=== PATIENT | male | born 1955 | race Caucasian/White ===

== ENCOUNTER 2021-01-26 17:58 | Emergency (ER) | payer MEDICARE, SELFPAY ==
[2021-01-26] VITALS (9 sets, daily range): BP systolic 140–200; BP diastolic 81–111; PULSE 84–106; RESP 18–22; TEMP 36.7–37.4; O2SAT 92–100; BMI 25.8
--- NOTE | ~2021-01-26 | CT_ITS ---
EXAMINATION: CT HEAD WITHOUT CONTRAST CLINICAL INFORMATION: Hypertensive. Question bleed or stroke. COMPARISON: None. TECHNIQUE: Contiguous axial imaging was performed from the skull base to vertex without intravenous contrast. This CT examination was performed using dose optimization techniques as appropriate, variously including the following: * Automated exposure control * Adjustment of mA and/or kV according to patient size (this includes techniques or standardized protocols for targeted exams where dose is matched to indication/reason for exam; i.e. extremities or head) Use of iterative reconstruction technique DLP: 1518 mGy-cm. FINDINGS: There is no evidence of acute intracranial hemorrhage or territorial infarction. No abnormal mass effect or midline shift is seen. Tran to white matter differentiation is well preserved. No extra-axial fluid collections are identified. No hydrocephalus. Proportional prominence of the ventricles and sulcal spaces is consistent with mild volume loss. Patchy periventricular and deep white matter hypoattenuation is consistent with mild small vessel ischemic changes. The osseous structures and soft tissues are normal. Moderate opacification of the left maxillary sinus. The left frontal sinus is completely opacified. The mastoid air cells and visualized portions of the paranasal sinuses are otherwise well aerated. CT/CT head/brain wo con IMPRESSION: No acute intracranial pathology. Paranasal sinus opacification as above.
--- NOTE | ~2021-01-26 | CT_ITS ---
EXAMINATION: CT ANGIOGRAM OF THE CHEST WITH AND WITHOUT CONTRAST (CT PULMONARY ANGIOGRAM FOR PE) CLINICAL INFORMATION: Reason for Exam PE? Pneumonia? COMPARISON: 07/29/2017 TECHNIQUE: Prior to contrast administration, noncontrast localization images were obtained. Subsequently, multidetector volumetric imaging was performed from the thoracic inlet to below the diaphragms following the administration of 65 mL Omnipaque 350 intravenous contrast. No contrast reaction reported Sagittal, coronal, and MIP oblique sagittal reformatted images were obtained on the CT workstation, uploaded to PACS, and reviewed. This CT examination was performed using dose optimization techniques as appropriate, variously including the following: *Automated exposure control *Adjustment of mA and/or kV according to patient size (this includes techniques or standardized protocols for targeted exams where dose is matched to indication/reason for exam; i.e. extremities or head) *Use of iterative reconstruction technique Total exam dose-length product 518 mGy-cm FINDINGS: QUALITY OF STUDY/CONTRAST BOLUS: Satisfactory. PULMONARY ARTERIES: No central or segmental pulmonary emboli. THORACIC AORTA: No aneurysm or dissection. Mild atherosclerotic disease. LUNG: The central airways are patent. Dependent opacity in the left lower lobe favors atelectasis. Mild bronchial wall thickening. No suspicious pulmonary nodules. Tiny right middle lobe nodule seen on the prior study is not currently visualized. PLEURA: No pleural effusion or pneumothorax. MEDIASTINUM: Normal heart size. Coronary artery calcification. No pericardial effusion. No hilar or mediastinal lymphadenopathy. There is a diverticulum extending off the distal right aspect of the esophagus. No evidence of septal bowing or right heart strain. CHEST WALL/AXILLA: No axillary or internal mammary lymphadenopathy. OSSEOUS STRUCTURES: No acute or suspicious osseous abnormality. Degenerative changes of the spine. UPPER ABDOMEN: Unremarkable. No reflux of contrast into the hepatic veins to suggest elevated right heart pressures. CT/CT angio chest PE protocol IMPRESSION: 1. No pulmonary embolism. 2. Bronchial wall thickening can be seen with a small airways process such as asthma or atypical/viral infection. No dense consolidation. 3. Distal esophageal diverticulum. VTE: negative
--- NOTE | ~2021-01-26 | XR_ITS ---
EXAMINATION: XR CHEST CLINICAL INFORMATION: Pneumonia COMPARISON: None TECHNIQUE: Frontal portable view of the chest was obtained. 2115 hours FINDINGS: Hazy opacity at the left lung base partially silhouetting the diaphragm consistent with consolidation and/or atelectasis and probable effusion. Right lung is normally aerated. No pulmonary vascular congestion. Cardiac and mediastinal contours are normal. XR/XR chest 1V IMPRESSION: Dense left lung base due to consolidation/atelectasis and probable effusion.
--- NOTE | 2021-01-26 19:18 | ECG_ITS ---
Test Reason : CHEST TIGHTNESS Blood Pressure : / mmHG Vent. Rate : 099 BPM Atrial Rate : 099 BPM P-R Int : 158 ms QRS Dur : 076 ms QT Int : 334 ms P-R-T Axes : 055 044 000 degrees QTc Int : 428 ms Normal sinus rhythm with sinus arrhythmia Nonspecific ST abnormality Abnormal ECG When compared with ECG of 29-JUL-2017 09:41, Vent. rate has increased BY 33 BPM Inverted T waves have replaced nonspecific T wave abnormality in Inferior leads T wave inversion no longer evident in Anterior leads Referred By: Paul Reardon Electronically Signed By:ISMAEL ZARATE MD
[2021-01-26 19:42] LABS: Basophils Percent Auto 0.3 % (0-2); MANUAL DIFF FLAG SCAN; Monocytes Absolute Auto 1.2 X10*3/uL (0.1-1.2); PLT CLUMP 1; Red Cell Distribution Width 12.8 % (11.0-16.0); SCAN SMEAR FLAG 1
[2021-01-26] MEDS: cloNIDine HCL 0.2 MG TABLET PO (19:42)
[2021-01-26] MEDS: ondansetron HCL 4 MG/2 ML VIAL IVPUSH ×2 (19:42→21:03)
[2021-01-26] MEDS: 0.9 % Sodium Chloride 1,000 ML 999 ML IV ×3 (19:42→22:58)
[2021-01-26 19:44] LABS: Eosinophils Absolute Auto 0.2 X10*3/uL (0.0-0.4); Eosinophils Percent Auto 1.2 % (0-4); Hematocrit 44.3 % (42-52); Hemoglobin 14.6 g/dl (14.0-18.0); Imm Gran Abs Auto 0.12 X10*3/uL (0.00-0.03); Imm Gran Pct Auto 0.8 % (0.0-0.4); Lymphocytes Absolute Auto 1.2 X10*3/uL (1.2-4.9); Mean Corpuscular Hemoglobin 31.5 pg (27.0-33.0); Mean Corpuscular Volume 95.5 fL (80-98); Monocytes Percent Auto 8.4 % (2-11); Neutrophils Absolute Auto 11.9 X10*3/uL (2.0-8.3); Neutrophils Percent Auto 81.3 % (45-73); Red Blood Count 4.64 X10*6/uL (4.60-5.80); White Blood Count 14.6 X10*3/uL (4.8-10.8)
--- NOTE | 2021-01-26 19:56 | MHC.RECOVSUP ---
? Reason for consult Support o Current location: ED9 o Identified substance use concern: Heroin / Suboxone - Withdrawal - Support ? Intervention o Community resources provided o Harm reduction discussion ? Plan: ? Additional information: Patient refused any services.. But was given Resources to follow up on..
[2021-01-26 20:06] LABS: Alanine Aminotransferase 18 U/L (0-40); Albumin Level 4.4 g/dL (3.5-5.0); Alkaline Phosphatase 52 U/L (39-117); Anion Gap 21 (12-20); Aspartate Amino Transferase 24 U/L (5-37); Bilirubin Total 0.7 mg/dL (0.0-1.0); Blood Urea Nitrogen 13 mg/dL (9-16); Calcium 9.6 mg/dL (8.4-10.2); Carbon Dioxide 19 mmol/L (22-29); Chloride 104 mmol/L (96-108); Creatinine Clr Calc Pharmacy 59.3; Estimated Glomerular Filt Rate > 60; Glucose Random 127 mg/dL (60-115); Potassium 3.6 mmol/L (3.3-5.1); Sodium 140 mmol/L (135-145); Total Protein 7.2 g/dL (6.5-8.0)
[2021-01-26 20:06] LABS: COVID-19 Test Negative (Negative); IDNOW Serial# 9DD0AD1C
[2021-01-26 20:20] LABS: Troponin-I High Sensitivity 11.8 ng/L (<3.5-35.0)
[2021-01-26 20:23] LABS: SLIDE REVIEW VERIFIED
[2021-01-26 20:35] LABS: INTERNATIONAL NORM RATIO 1.1 (0.9-1.1); Prothrombin Time 13.2 SEC (10.8-13.0)
[2021-01-26 20:38] LABS: Partial Thromboplastin Time 35.3 SEC (24.1-38.0)
--- NOTE | 2021-01-26 20:56 | PC.NURSE ---
Pharmacy contacted for captopril, eta 10-15 minutes.
[2021-01-26] MEDS: Loperamide HCl 2 MG CAPSULE PO (21:02)
[2021-01-26] MEDS: LORazepam 2 MG/ML VIAL IVPUSH (21:04)
--- NOTE | 2021-01-26 21:36 | PC.NURSE ---
MED CONTINUES TO BE DELAYED DUE TO PHARMACY. MLP AWARE.
[2021-01-26] MEDS: captopriL 25 MG TABLET PO (21:48)
--- NOTE | 2021-01-26 21:54 | PC.NURSE ---
PT BECAME DIFFICUT TO [facility] FOR BP MED ADMINSTRATION. MLP AWARE. PLAN TO DRAW ETOH, BLADDER SCAN AND STRIAGHT CATH FOR GARBER. PT STATED MAN WITH BLACK HAIR GAVE HIM MORE MEDS.
--- NOTE | 2021-01-26 22:16 | ED_ITS ---
HPI - General Adult General Chief complaint: ETOH/Substance Use Stated complaint: od high blood pressure Time Seen by Provider: 01/26/21 19:08 Source: patient Mode of arrival: ambulatory Limitations: no limitations History of Present Illness HPI narrative: Patient presents to the ED for diarrhea, abdominal cramping, chest tightness, sweating, and nausea after taking Suboxone after taking heroin. Patient lied to the [facility] and told them he did not take any heroin for the past 24 hours wehn in fact he took heroin that morning and then he took the strip of Suboxone and started having symptoms immediately. Patient also denies taking his blood pressure meds. Patient denies taking any other drug use. Related Data Previous Rx's Medication Instructions Recorded amoxicillin-pot clavulanate 1 tab PO Q12H 7 Days #14 tab 01/26/21 [Augmentin] doxycycline hyclate 100 mg PO BID 7 Days #14 cap 01/26/21 Allergies Allergy/AdvReac Type Severity Reaction Status Date / Time No Known Allergies Allergy Unverified 06/16/20 14:36 [No Known Allergies*] Review of Systems Review of Systems: Yes all other systems are reviewed and are negative Constitutional: Constitutional: Reports as per HPI and Reports no additional constitutional complaints Comments: Sweating Eyes: Eyes: Reports as per HPI and Reports no additional eye complaints ENT: Reports system reviewed and no additional complaints, except as documented and Reports as per HPI Cardiovascular: Cardiovascular: Reports as per HPI, Reports no additional cardiovascular complaints and Denies dyspnea Comments: Chest tightness Respiratory: Respiratory: Reports as per HPI, Reports no additional respiratory complaints and Denies dyspnea Gastrointestinal: Gastrointestinal: Reports as per HPI, Reports no additional gastrointestinal complaints, Reports GI cramping, Reports diarrhea and Reports nausea Genitourinary: Genitourinary: Reports no additional male genitourinary complaints and Reports as per HPI Musculoskeletal: Musculoskeletal: Reports no additional musculoskeletal complaints and Reports as per HPI Neurologic: Reports system reviewed and no additional complaints, except as documented and Reports as per HPI Psychiatric: Psychiatric: Reports no additional psychiatric complaints and Reports as per HPI [facility] Past Medical History Medical History (Updated 01/26/21 @ 22:35 by HILARY Weiss) High cholesterol HTN (hypertension) Social History Social History Alcohol intake: current Alcohol intake frequency: 0-2 drinks per day Smoking Status: Current every day smoker Smoked in Last 30 Days: Yes Use of substances other than those prescribed or required for medical reasons: Yes Substance Use Type: Heroin and Opiates Substance Use Frequency: Chronic Longstanding Last Used Substance: Just Prior to Admission Advance Directives: No Advance Directives Information Provided: Yes Physical Exam Vital Signs: Vital Signs: Last Vital Signs Temp 98.0 F 01/26/21 20:00 Pulse 84 01/26/21 22:00 Resp 18 01/26/21 22:00 BP 170/89 H 01/26/21 22:00 Pulse Ox 100 01/26/21 21:00 Body Mass Index 25.8 Const: General: cooperative, healthy appearing, comfortable, no acute distress, well developed, alert, awake and Physically active; No lethargic Orientation/consciousness: No lethargic HENMT: Head: Yes normal to inspection, Yes No palpable skull fracture present, Yes normocephalic, No atraumatic and No abrasion Eyes: General: appearance normal, both eyes and all related structures Neck: Neck: Yes normal visual inspection, Yes full ROM, Yes no lymphadenopathy, Yes no meningeal signs, Yes trachea midline, Yes supple and No tender Chest: Chest palpation & inspection: normal inspection of the chest and normal palpation of entire chest wall Resp: Effort & Inspection: normal respiratory effort and able to speak in complete sentences Auscultation: clear to auscultation bilaterally Cardio: Jugular venous distension: no JVD Heart sounds: S1 normal heart sound present and S2 normal heart sound present GI: Inspection: Yes normal to inspection and No abdominal wall ecchymosis Palpation (GI): Soft to palpation, not firm, nontender, no guarding and not rigid : General: No CVA tenderness and Yes no CVA tenderness Back/Spine/Pelvis: Back: no CVA tenderness, No CVA tenderness and No back tenderness Skin: General skin exam: no rashes or lesions noted and elasticity normal Neuro: General: patient oriented x3, no meningeal signs and CN's II-XI intact bilaterally Cranial nerves: Yes CN's II-XII intact bilaterally Extrem: General: Yes normal to inspection and Yes full ROM Psych: Appearance: grossly normal, well kempt and not disheveled Course Course Course Narrative: History and physical exam indicate opiate withdrawal due to patient taking Suboxone right after using 1 bag of heroin instead of waiting over 24 hours as per protocol. Patient age who also will do a cardiac evaluation. Will give medication to his clonidine which will help her blood pressure in opiate withdrawal. No improvement will give Ativan. Patient given fluids. Reevaluation(s) Reevaluation #1: EKG negative for STEMI. First troponin came back negative. COVID swab came back negative. Chest x-ray shows possible pneumonia. Due to elevated blood pressure patient was sent for head CT scan mentioned is no bleeding or stroke. Currently no neuro deficit. Give captopril to blood pressure still slightly elevated and give Ativan. Patient is not febrile Reevaluation #2: Awaiting head CT results. Symptoms most likely due to opiate withdrawal. will prepared discharged with p.o. antibiotics for probable chest x- ray pneumonia although patient denies any coughing. Patient IV drug user ( risk for aspiration pneumonia). Blood pressure improved. We will give IV antibiot ics due to patient being IV drug use. Will do lactic and blood culture. Discharge papers prepared and can be canceled if admission required. Presently no indication for admission. Positive symptoms are from opiate withdrawal due to patient taking Suboxone soon after taking heroin. Case signed out to Dr. Newby. Blood pressure on monitor presently is 146/85 Medical Decision Making MDM Narrative Medical decision making narrative: Opiate withdrawal. Pneumonia Lab Data Result diagrams: 01/26/21 19:33 01/26/21 19:33 Labs: Lab Results 01/26/21 01/26/21 01/26/21 Range/Units 19:33 19:33 19:33 WBC 14.6 H (4.8-10.8) X10*3/uL RBC 4.64 (4.60-5.80) X10*6/uL Hgb 14.6 (14.0-18.0) g/dl Hct 44.3 (42-52) % MCV 95.5 (80-98) fL MCH 31.5 (27.0-33.0) pg MCHC 33.0 (31.0-36.0) g/dl RDW 12.8 (11.0-16.0) % Plt Count TNP MPV Not Reportable Immature Gran % (Auto) 0.8 H (0.0-0.4) % Neut % (Auto) 81.3 H (45-73) % Lymph % (Auto) 8.0 L (20-40) % Davison % (Auto) 8.4 (2-11) % Eos % (Auto) 1.2 (0-4) % Baso % (Auto) 0.3 (0-2) % Lymph # (Auto) 1.2 (1.2-4.9) X10*3/uL Davison # (Auto) 1.2 (0.1-1.2) X10*3/uL Eos # (Auto) 0.2 (0.0-0.4) X10*3/uL Baso # (Auto) 0.0 (0.0-0.2) X10*3/uL Abs Immat Gran (auto) 0.12 H (0.00-0.03) X10*3/uL Absolute Neuts (auto) 11.9 H (2.0-8.3) X10*3/uL Absolute Nucleated RBC 0.000 (0.0-0.012) X10*3/uL Nucleated RBC % (auto) 0.0 (0.0-0.2) /100WBC Smear Tech's Comments VERIFIED PT (10.8-13.0) SEC INR (0.9-1.1) APTT (24.1-38.0) SEC Sodium 140 (135-145) mmol/L Potassium 3.6 (3.3-5.1) mmol/L Chloride 104 (96-108) mmol/L Carbon Dioxide 19 L (22-29) mmol/L Anion Gap 21 H (12-20) BUN 13 (9-16) mg/dL Creatinine 1.13 (0.5-1.4) mg/dL Estim Creat Clear Calc 59.3 Estimated GFR > 60 Random Glucose 127 H (60-115) mg/dL Calcium 9.6 (8.4-10.2) mg/dL Total Bilirubin 0.7 (0.0-1.0) mg/dL AST 24 (5-37) U/L ALT 18 (0-40) U/L Alkaline Phosphatase 52 (39-117) U/L Ammonia (13-55) umol/L Troponin I High Sens 11.8 (<3.5-35.0) ng/L Total Protein 7.2 (6.5-8.0) g/dL Albumin 4.4 (3.5-5.0) g/dL Urine Color Urine Appearance Urine pH (5.0-8.0) Ur Specific [place] (1.005-1.025) Urine Protein (NEG-TRACE) MG/DL Urine Glucose (UA) (NEG) MG/DL Urine Ketones (NEG) MG/DL Urine Blood (NEG) Urine Nitrite (NEG) Ur Leukocyte Esterase (NEG) Urine RBC (0) /HPF Urine WBC (0-4) /HPF Ur Squamous Epith Cells /LPF Urine Bacteria /LPF Urine Mucus /LPF Ethyl Alcohol mg/dL COVID-19 ([facility]) (Negative) COVID-19 Clin Com 01/26/21 01/26/21 01/26/21 Range/Units 19:45 20:24 22:18 WBC (4.8-10.8) X10*3/uL RBC (4.60-5.80) X10*6/uL Hgb (14.0-18.0) g/dl Hct (42-52) % MCV (80-98) fL MCH (27.0-33.0) pg MCHC (31.0-36.0) g/dl RDW (11.0-16.0) % Plt Count MPV Immature Gran % (Auto) (0.0-0.4) % Neut % (Auto) (45-73) % Lymph % (Auto) (20-40) % Davison % (Auto) (2-11) % Eos % (Auto) (0-4) % Baso % (Auto) (0-2) % Lymph # (Auto) (1.2-4.9) X10*3/uL Davison # (Auto) (0.1-1.2) X10*3/uL Eos # (Auto) (0.0-0.4) X10*3/uL Baso # (Auto) (0.0-0.2) X10*3/uL Abs Immat Gran (auto) (0.00-0.03) X10*3/uL Absolute Neuts (auto) (2.0-8.3) X10*3/uL Absolute Nucleated RBC (0.0-0.012) X10*3/uL Nucleated RBC % (auto) (0.0-0.2) /100WBC Smear Tech's Comments PT 13.2 H (10.8-13.0) SEC INR 1.1 (0.9-1.1) APTT 35.3 (24.1-38.0) SEC Sodium (135-145) mmol/L Potassium (3.3-5.1) mmol/L Chloride (96-108) mmol/L Carbon Dioxide (22-29) mmol/L Anion Gap (12-20) BUN (9-16) mg/dL Creatinine (0.5-1.4) mg/dL Estim Creat Clear Calc Estimated GFR Random Glucose (60-115) mg/dL Calcium (8.4-10.2) mg/dL Total Bilirubin (0.0-1.0) mg/dL AST (5-37) U/L ALT (0-40) U/L Alkaline Phosphatase (39-117) U/L Ammonia (13-55) umol/L Troponin I High Sens (<3.5-35.0) ng/L Total Protein (6.5-8.0) g/dL Albumin (3.5-5.0) g/dL Urine Color Urine Appearance Urine pH (5.0-8.0) Ur Specific [place] (1.005-1.025) Urine Protein (NEG-TRACE) MG/DL Urine Glucose (UA) (NEG) MG/DL Urine Ketones (NEG) MG/DL Urine Blood (NEG) Urine Nitrite (NEG) Ur Leukocyte Esterase (NEG) Urine RBC (0) /HPF Urine WBC (0-4) /HPF Ur Squamous Epith Cells /LPF Urine Bacteria /LPF Urine Mucus /LPF Ethyl Alcohol < 10 mg/dL COVID-19 ([place]) Negative (Negative) COVID-19 Clin Com See Note 01/26/21 01/26/21 Range/Units 22:18 22:18 WBC (4.8-10.8) X10*3/uL RBC (4.60-5.80) X10*6/uL Hgb (14.0-18.0) g/dl Hct (42-52) % MCV (80-98) fL MCH (27.0-33.0) pg MCHC (31.0-36.0) g/dl RDW (11.0-16.0) % Plt Count MPV Immature Gran % (Auto) (0.0-0.4) % Neut % (Auto) (45-73) % Lymph % (Auto) (20-40) % Davison % (Auto) (2-11) % Eos % (Auto) (0-4) % Baso % (Auto) (0-2) % Lymph # (Auto) (1.2-4.9) X10*3/uL Davison # (Auto) (0.1-1.2) X10*3/uL Eos # (Auto) (0.0-0.4) X10*3/uL Baso # (Auto) (0.0-0.2) X10*3/uL Abs Immat Gran (auto) (0.00-0.03) X10*3/uL Absolute Neuts (auto) (2.0-8.3) X10*3/uL Absolute Nucleated RBC (0.0-0.012) X10*3/uL Nucleated RBC % (auto) (0.0-0.2) /100WBC Smear Tech's Comments PT (10.8-13.0) SEC INR (0.9-1.1) APTT (24.1-38.0) SEC Sodium (135-145) mmol/L Potassium (3.3-5.1) mmol/L Chloride (96-108) mmol/L Carbon Dioxide (22-29) mmol/L Anion Gap (12-20) BUN (9-16) mg/dL Creatinine (0.5-1.4) mg/dL Estim Creat Clear Calc Estimated GFR Random Glucose (60-115) mg/dL Calcium (8.4-10.2) mg/dL Total Bilirubin (0.0-1.0) mg/dL AST (5-37) U/L ALT (0-40) U/L Alkaline Phosphatase (39-117) U/L Ammonia 45 (13-55) umol/L Troponin I High Sens (<3.5-35.0) ng/L Total Protein (6.5-8.0) g/dL Albumin (3.5-5.0) g/dL Urine Color DARK YELLOW Urine Appearance CLEAR Urine pH 8.5 H (5.0-8.0) Ur Specific [place] 1.020 (1.005-1.025) Urine Protein NEG (NEG-TRACE) MG/DL Urine Glucose (UA) NEG (NEG) MG/DL Urine Ketones 15 (NEG) MG/DL Urine Blood TRACE (NEG) Urine Nitrite NEG (NEG) Ur Leukocyte Esterase NEG (NEG) Urine RBC 5-9 H (0) /HPF Urine WBC 0-2 (0-4) /HPF Ur Squamous Epith Cells TRACE /LPF Urine Bacteria TRACE /LPF Urine Mucus TRACE /LPF Ethyl Alcohol mg/dL COVID-19 ([facility]) (Negative) COVID-19 Clin Com ECG Data Interpretation: Normal sinus rhythm. Ventricular rate 99. Pr interval 158. qTC 450. Discharge Plan Discharge Clinical Impression: Acute opioid withdrawal, Pneumonia Patient Disposition: Home, Self-Care Instructions: Bacterial Pneumonia (ED), Opioid Withdrawal (ED) Additional Instructions: Return to ED for any suicidal/homicidal ideation, headache, chest pain, shortness of breath, dizziness, fever, chills, severe abdominal pain, or any other concerning symptoms. Please follow-up with PCP Prescriptions: New amoxicillin-pot clavulanate [Augmentin] 875-125 mg tablet 1 tab PO Q12H 7 Days Qty: 14 RF: 0 doxycycline hyclate 100 mg capsule 100 mg PO BID 7 Days Qty: 14 RF: 0 Print Language: Turkmen
--- NOTE | 2021-01-26 22:22 | PC.NURSE ---
SECURITY TO SEARCH BELONGINGS. NOTHING FOUND. PT PROVIDES CONFUSED CONVERSATION. MLP TO BEDSIDE TO EVALUATE. PLAN TO STRAIGHT CATH. TOLERATED WELL.
[2021-01-26 22:27] LABS: Glucose Urine UA NEG (NEG); Leukocyte Esterase Urine NEG (NEG); Nitrite Urine NEG (NEG); PH 8.5 (5.0-8.0); Urine Blood TRACE (NEG); Urine Ketones 15 MG/DL (NEG); Urine Protein NEG (NEG-TRACE)
[2021-01-26 22:33] LABS: Appearance Urine CLEAR; Color Urine DARK YELLOW
[2021-01-26 22:40] LABS: Ammonia 45 umol/L (13-55)
[2021-01-26 22:41] LABS: Bacteria Urine TRACE /LPF; Mucus Urine TRACE /LPF; Squamous Epithelial Cell Urine TRACE /LPF; WBC Urine 0-2 /HPF (0-4)
[2021-01-26 22:45] LABS: Ethanol < 10 mg/dL
[2021-01-26 22:56] LABS: Amphetamine Screen Urine Not Detected (Not Detect); Barbiturates, Urine Not Detected (Not Detect); Benzodiazepines Screen Urine Not Detected (Not Detect); Cannabinoid Screen Urine POSITIVE (Not Detect); Cocaine Screen Urine Not Detected (Not Detect); Opiate Screen Urine POSITIVE (Not Detect); Phencyclidine Screen Urine Not Detected (Not Detect)
[2021-01-26] MEDS: cefTRIAXone sodium 1 GM in 0.9 % Sodium Chloride 50 ML IV (22:58)
[2021-01-26 23:03] LABS: Lactic Acid 1.2 mmol/L (0.5-2.0)
--- NOTE | 2021-01-26 23:08 | PC.NURSE ---
pt has intermittent periods of orientated conversation. need frequent reprompting to participate in care.
[2021-01-26 23:15] LABS: Troponin-I High Sensitivity 41.3 ng/L (<3.5-35.0)
[2021-01-26] MEDS: iohexoL 350 MG/ML 100 ML INFUS..BTL 65 ML IV (23:51)
[2021-01-27] MEDS: iohexoL 350 MG/ML 100 ML INFUS..BTL IV (00:05)
--- NOTE | 2021-01-27 00:11 | PC.NURSE ---
at bedside attempting to climb into bed with the patient. redirected that she must remain in chair at bedside or go to the waiting room. at this time is in agreement to remain in chair at bedside.
--- NOTE | 2021-01-27 00:30 | PC.NURSE ---
PER MD ESTRELLITA PINEDA TO D/C AT THIS TIME.
--- NOTE | 2021-01-28 07:22 | ECG_ITS ---
Test Reason : NSTEMI Blood Pressure : / mmHG Vent. Rate : 094 BPM Atrial Rate : 094 BPM P-R Int : 158 ms QRS Dur : 072 ms QT Int : 370 ms P-R-T Axes : 090 052 -04 degrees QTc Int : 462 ms Normal sinus rhythm ST & T wave abnormality, consider inferior ischemia Abnormal ECG When compared with ECG of 26-JAN-2021 19:54, ST now depressed in Lateral leads T wave inversion now evident in Anterior leads Referred By: Greg Newby Electronically Signed By:ISMAEL ZARATE MD
== END 2021-01-27 00:50 | disposition home or self-care (01) ==
PROVIDERS: Physician Assistant; Emergency Provider Internal Medicine; PCP Hospitalist
DX: J18.9 Pneumonia, unspecified organism (principal); F11.23 Opioid dependence with withdrawal; F17.200 Nicotine dependence, unspecified, uncomplicated; R30.0 Dysuria; Z20.822 Contact with and (suspected) exposure to COVID-19; Z71.6 Tobacco abuse counseling; Z79.899 Other long term (current) drug therapy
CPT/HCPCS: 36415; 51702; 70450; 71045; 71275; 80053; 80307; 80320; 81001; 81003; 82140; 83605; 84484; 85025; 85610; 85730; 87040; 87635; 93005; 96361; 96365; 96375; 99285; J0696; J2060; J2405; Q9967

== ENCOUNTER 2022-03-16 16:05 | Emergency (ER) | payer MEDICARE, SELFPAY ==
--- NOTE | 2022-03-16 16:13 | ED.OVERDOSE ---
HPI - Overdose General Chief Complaint: Overdose Stated Complaint: OD,NARCAN GIVEN W/GOOD RESULT Time Seen by Provider: 03/16/22 16:07 Source: patient and EMS Mode of arrival: EMS Limitations: no limitations History of Present Illness HPI Narrative: Pt comes to the ED c/o an overdose. EMS reports that bystanders saw the pt unconscious in his car at the [employer] parking lot. The store's janitorial manager called 911 . Bradley HYATT broke the pt's car window and pulled him out, intranasal narcan was given to him by PD. By the time that EMS arrived, pt was awake. Pt initally denied using drugs, but then admitted that this was an accident. Per [facility]adley [facility] fire, pt is known to frequently OD. Pt's approximately 3 month ago from an OD. Pt denies any CP, SOB Related Data Home Medications Medication Instructions Recorded Confirmed ezetimibe 10 mg tablet 1 tab PO DAILY 01/26/21 01/26/21 fenofibrate 160 mg tablet 1 tab PO DAILY 01/26/21 01/26/21 terazosin 5 mg capsule 1 cap PO BEDTIME 01/26/21 01/26/21 Previous Rx's Medication Instructions Recorded azithromycin 500 mg tablet 500 mg PO DAILY 3 days #3 tabs 01/27/21 (Zithromax) Allergies Allergy/AdvReac Type Severity Reaction Status Date / Time No Known Allergies Allergy Unverified 06/16/20 14:36 [No Known Allergies*] Review of Systems Review of Systems: Constitutional : No Weight loss, No Fever, No Chills, No Night Sweats, No Fatigue, No Malaise ENT/Mouth : No Hearing loss, No Ear Pain, No Nasal Congestion, No Sinus Pain, No Hoarseness, No sore throat, No Rhinorrhea, No Swallowing Difficulty Eyes: No Eye Pain, No Swelling, No Redness, No Foreign Body, No Discharge, No Vision Changes Cardiovascular : No Chest Pain, No SOB, No Dyspnea on Exertion, No Orthopnea, No Edema, No Palpitations Respiratory : No Cough, No Sputum, No Wheezing, No Smoke Exposure, No Dyspnea Gastrointestinal : No Nausea, No Vomiting, No Diarrhea, No Constipation, No abdominal Pain, No Hematochezia, No Melena Genitourinary : no irregular bleeding, No Dysuria, No Urinary Frequency, No Hematuria, No Urinary Incontinence, No Urgency, No Flank Pain, No Urinary Flow Changes, No Hesitancy Musculoskeletal : No joint pain, No Myalgias, No Joint Swelling Skin : No Skin Lesions, No rash Neuro : No Weakness, No Numbness, No Paresthesias, No Loss of Consciousness, No Dizziness, No Headache Psych : No Anxiety/Panic, No Depression, No SI/HI/AH/VH, No Social Issues, Heme/Lymph: No Bruising, No Bleeding,No Lymphadenopathy Endocrine : No Polyuria, No Polydipsia, No Temperature Intolerance [facility] Past Medical History Medical History (Updated 03/16/22 @ 17:38 by Cora Soler MD) High cholesterol HTN (hypertension) Overdose Substance abuse Social History Social History Alcohol intake: current Alcohol intake frequency: 0-2 drinks per day Substance Use Type: Heroin and Opiates Advance Directives: No Advance Directives Information Provided: No Physical Exam Vital Signs: Vital Signs: Last Vital Signs Temp 98.0 F 03/16/22 16:15 Pulse 84 03/16/22 17:24 Resp 18 03/16/22 16:15 BP 142/78 H 03/16/22 16:15 Pulse Ox 95 03/16/22 17:24 O2 Del Method 03/16/22 16:15 BMI result Body Mass Index 25.8 Const: Other: Appearance: Alert. Oriented X3. No acute distress. Eyes: Pupils equal, round and reactive to light. ENT: Pharynx normal. Neck: Normal inspection. Neck supple. No lymph nodes noted. No crepitus CVS: Normal heart rate and rhythm. Pulses normal. Normal S1 and S2 Respiratory: No respiratory distress. Breath sounds normal. No Wheezing. No rales , saturating 95% on room air Abdomen: Soft and nontender. No rigidity. No distention. Skin: Skin warm and dry. Normal skin color. Normal skin turgor. Extremities: No lower extremity edema. No Lacerations. No Rash Neuro: Oriented X 3. No motor deficit. No sensory deficit. Moving all extremities. No slurred speech. CN 2 through 12 grossly intact Psych: calm, cooperative, normal affect Course Course Course Narrative: At this time, patient remains awake, alert, calm and cooperative. Patient was given 2 mg of Narcan prior to arrival. SUDE consult pending. Physician observation started at 16:25 17:35, patient was seen by the care team/SUDE , patient is in denial that he used any narcotics, refused any help. Patient Was given home Narcan Discharge Plan Discharge Clinical Impression: Drug overdose Patient Disposition: Home, Self-Care Instructions: Adult Overdose (ED) Additional Instructions: Please follow-up with your primary care physician tomorrow. If you have any worsening or new symptoms, please return to the emergency room or call 911 Prescriptions: No Action terazosin 5 mg capsule 1 cap PO BEDTIME ezetimibe 10 mg tablet 1 tab PO DAILY fenofibrate 160 mg tablet 1 tab PO DAILY azithromycin [Zithromax] 500 mg tablet 500 mg PO DAILY 3 Days Qty: 3 0RF
[2022-03-16 16:15] VITALS: BP 142/78; PULSE 126; RESP 18; TEMP 36.7; O2SAT 96; BMI 25.8
--- NOTE | 2022-03-16 16:38 | HO.SUDE ---
SUDE Patient is a 66 year old Sudanese speaking male who presented to [facility] via EMS after an accidental overdose. This personal lines underwriter met with patient to offer SUDE assessment. Patient declines assessment, stating that he does not use heroin. Patient reports he used heroin years ago however continues to decline recent use. Patient reports he does not take any pills either. Patient reports he has never overdosed before. Explained to patient that we are not trying to get him in trouble or sap portal architect him and that our goal is to connect him with resources and supports. Patient continues to report no use. Encouraged patient to reach out to staff if he changes his mind and would like to talk. Recovery Support Team available as needed.
[2022-03-16 17:24] VITALS: PULSE 84; O2SAT 95
[2022-03-16] MEDS: Naloxone HCl Nasal TAKE HOME 4 MG SPRAY NOSTRILALT (17:32)
--- NOTE | 2022-03-16 17:35 | PC.NURSE ---
pt offered recovery coaches multiple times. offered detox list - refused. eating and drinking with no issue.
--- NOTE | 2022-03-16 17:38 | ECG_ITS ---
Test Reason : OVERDOSE Blood Pressure : / mmHG Vent. Rate : 082 BPM Atrial Rate : 082 BPM P-R Int : 166 ms QRS Dur : 086 ms QT Int : 342 ms P-R-T Axes : 092 027 -02 degrees QTc Int : 399 ms Normal sinus rhythm Nonspecific ST and T wave abnormality Abnormal ECG When compared with ECG of 26-JAN-2021 23:20, ST no longer depressed in Lateral leads QT has shortened Referred By: Cora Soler Electronically Signed By:Mario Bagley
== END 2022-03-16 17:55 | disposition home or self-care (01) ==
PROVIDERS: Emergency Provider Emergency Medicine
DX: T50.901A Poisoning by unspecified drugs, medicaments and biological substances, accidental (unintentional), initial encounter (principal); Y92.481 Parking lot as the place of occurrence of the external cause; I10 Essential (primary) hypertension
CPT/HCPCS: 93005; 99284

== ENCOUNTER 2023-09-22 13:28 | Emergency (ER) | payer MEDICARE, SELFPAY ==
[2023-09-22 13:32] VITALS: BP 198/105; PULSE 95; RESP 22; TEMP 36.5; O2SAT 95; BMI 29.7
--- NOTE | 2023-09-22 14:12 | ED_ITS ---
HPI - Overdose General Chief Complaint: Overdose Stated Complaint: quest od Time Seen by Provider: 09/22/23 13:59 Source: patient Mode of arrival: ambulatory Limitations: no limitations History of Present Illness HPI Narrative: 68 yo male with history of HTN presents to the ER after sniffing one bag of dope that was given to him by a friend. His friend gave narcan CLIENT CUSTOMER MANAGER and then dropped patient off here. He received 4mg IN in triage. Patient states I did something stupid that I havent done in years. Patient denies additional substance use. No SI/HI. No physical complaints. Related Data Home Medications Medication Instructions Recorded Confirmed ezetimibe 10 mg tablet 1 tab PO DAILY 01/26/21 01/26/21 fenofibrate 160 mg tablet 1 tab PO DAILY 01/26/21 01/26/21 terazosin 5 mg capsule 1 cap PO BEDTIME 01/26/21 01/26/21 Previous Rx's Medication Instructions Recorded azithromycin 500 mg tablet 500 mg PO DAILY 3 days #3 tabs 01/27/21 (Zithromax) Allergies Allergy/AdvReac Type Severity Reaction Status Date / Time No Known Allergies Allergy Unverified 06/16/20 14:36 [No Known Allergies*] [facility] Past Medical History Medical History (Updated 09/22/23 @ 14:12 by Stefany Estes NP) Overdose Substance abuse HTN (hypertension) High cholesterol Social History Social History Alcohol intake: current Alcohol intake frequency: 0-2 drinks per day Substance Use Type: Heroin and Opiates Advance Directives: No Advance Directives Information Provided: No Physical Exam Vital Signs: Vital Signs: Last Vital Signs Temp 97.7 F 09/22/23 13:32 Pulse 72 09/22/23 14:33 Resp 15 09/22/23 14:33 BP 139/81 09/22/23 14:33 Pulse Ox 98 09/22/23 14:33 O2 Del Method Room Air 09/22/23 14:33 BMI result Body Mass Index 29.7 Course Course Course Narrative: Patient monitored in the ER for greater than 1 hour with no additional need for Narcan. Patient drinking brittani edwardo up and ambulating with a steady gait. Plan for discharge home. Medical Decision Making Medical Decision Making MDM Narrative: 68 yo male with history of HTN presents to the ER after sniffing one bag of dope that was given to him by a friend. His friend gave narcan CLIENT CUSTOMER MANAGER and then dropped patient off here. He received 4mg IN in triage.? Patient states I did something stupid that I havent done in years. Patient denies additional substance use. No SI/HI. No physical complaints.? Awake, alert and oriented. VSS Not interested in detox resources, no SI/HI. will monitor for brief time before dispo Differential Diagnosis Differential Diagnoses: The differential diagnosis associated with the presentation includes polysubstance Admission/Observation Consideration of admission/observation: Escalation of care including admission/observation considered Improved with narcan, no need for repeat doses and or admission for obs Consult Healthcare Provider Management of the patient was discussed with: Solar Lab Technician Patient met with high school coach. No additional needs. Plan for discharge Discharge Plan Discharge Clinical Impression: Drug overdose Patient Disposition: Home, Self-Care Instructions: Adult Overdose (ED) Additional Instructions: dont do drugs Prescriptions: No Action terazosin 5 mg capsule 1 cap PO BEDTIME ezetimibe 10 mg tablet 1 tab PO DAILY fenofibrate 160 mg tablet 1 tab PO DAILY azithromycin [Zithromax] 500 mg tablet 500 mg PO DAILY 3 Days Qty: 3 0RF Referrals: Physician,None [Primary Care Provider] - 1 week
[2023-09-22 14:33] VITALS: BP 139/81; PULSE 72; RESP 15; O2SAT 98
--- NOTE | 2023-09-22 14:41 | HO.SUDE ---
Met with pt in ED21 who is here for OD. Pt informs he took 1 bag of heroin nasally and is the first time he has used since he was younger. Pt states he used relationally when he was younger but has not used in a very long time. No history of OD, MAT, or ATS. Pt does not want recovery support as it was a one time use and has no plans to use again. T/W reviewed harm reduction and overdose prevention with pt who verbalized understanding and had no further questions or concerns at this time. Provider is aware pt is ready to go home.
[2023-09-22] MEDS: Naloxone HCl Nasal TAKE HOME 4 MG SPRAY 8 MG NOSTRILALT (14:48)
== END 2023-09-22 14:50 | disposition home or self-care (01) ==
PROVIDERS: Emergency Provider Student in an Organized Health Care Education/Training Program
DX: T50.901A Poisoning by unspecified drugs, medicaments and biological substances, accidental (unintentional), initial encounter (principal); Y92.9 Unspecified place or not applicable; I10 Essential (primary) hypertension
CPT/HCPCS: 99282; 99283